=== PATIENT | male | born 1960 | race Caucasian/White ===

== ENCOUNTER 2023-12-03 18:37 | Emergency (ER) | payer MEDICARE, SELFPAY ==
--- NOTE | ~2023-12-03 | XR_ITS ---
EXAMINATION: XR LUMBOSACRAL SPINE CLINICAL INFORMATION: Low back pain COMPARISON: None available. TECHNIQUE: Three views of the lumbosacral spine. FINDINGS: There is anatomic alignment of the lumbar vertebral bodies and posterior elements. Vertebral body heights are maintained. No acute fracture identified. Multilevel endplate osteophytes are noted. There is disc space narrowing which appears most prominent at L2-L3. Sacroiliac joints appear intact. XR/XR lumbar spine 2-3V IMPRESSION: No acute findings identified. Degenerative changes as noted above.
[2023-12-03 19:03] VITALS: BP 127/76; PULSE 73; RESP 18; TEMP 36.8; O2SAT 99; BMI 21.4
--- NOTE | 2023-12-03 19:07 | ED_ITS ---
HPI - General Adult General Chief complaint: Extremity Injury, Lower Stated complaint: ? blood clot LT leg Time Seen by Provider: 12/04/23 02:54 Source: patient Mode of arrival: ambulatory Limitations: no limitations History of Present Illness HPI narrative: Patient complaining of left lower lumbar area pain for last 1 week patient was pulling the wires at work and after that pain started denies any urinary symptoms does have pain shooting sometimes to the left leg and left foot no paresthesia no bladder or bowel in normal ambulatory at this time patient feeling much better after arrival in the ER Related Data Previous Rx's Medication Instructions Recorded cyclobenzaprine 10 mg tablet 10 mg PO Q8H #20 tabs 12/04/23 Allergies Allergy/AdvReac Type Severity Reaction Status Date / Time No Known Allergies Allergy Verified 12/03/23 19:03 [No Known Allergies*] Review of Systems 2 Review of Systems: Yes all other systems are reviewed and are negative [facility] Social History Social History Smoked in Last 30 Days: Yes Use of substances other than those prescribed or required for medical reasons: No Advance Directives: No Advance Directives Information Provided: Yes Physical Exam ED Vital Signs: Vital Signs - 24 hr 12/03/23 19:03 12/04/23 01:48 12/04/23 03:41 Temperature 98.3 F 98.8 F 97.8 F Pulse Rate 73 73 56 Respiratory Rate 18 16 16 Blood Pressure 127/76 141/69 H 125/63 Pulse Oximetry 99 96 97 Oxygen Delivery Method Room Air Room Air Room Air BMI result Body Mass Index 21.4 Appearance: Alert. Oriented X3. No acute distress. ENT: Pharynx normal. Oral Mucosa moist Neck: Normal inspection. Neck supple. CVS: Normal heart rate and rhythm. Pulses normal. Respiratory: No respiratory distress. Equal air entry bilateral, no wheezing/rales/rhonchi Abdomen: Soft and nontender. Bowel sounds are present, no mass palpable, no CVA tenderness Skin: Skin warm and dry. Normal skin color. Normal skin turgor Back: Soft tissue tenderness left side of L3-4 vertebral no midline tenderness SLR negative patient able to stand on toes and heel gait is normal. Extremities: No lower extremity edema. No calf tenderness Neuro: Oriented X 3. No motor deficit. No sensory deficit.No cerebellar signs , cranial nerves II-XII intact Course Course Course Narrative: RME performed by Josephine Shah PA-C. Patient is a 63 year old assigned male at presenting to the emergency department with low back pain and feeling generally unwell. Confirmed pulse in the left foot. Detailed physical exam and review of systems are deferred to the nurse outreach case manager. Labs ordered. Patient placed back in the waiting room pending room availability and results. Medications Administered Discontinued Medications Generic Name Dose Route Start Last Admin Trade Name Suzanne PRN Reason Stop Dose Admin Cyclobenzaprine HCl 10 mg 12/04/23 03:21 12/04/23 04:02 Cyclobenzaprine Hcl 10 Mg Tablet PO 12/04/23 03:22 10 mg ONCE ONE Administration Medical Decision Making Medical Decision Making [facility] Narrative: Patient's x-ray negative for compression fracture likely patient has left lumbar strain ambulatory in the steady gait patient does have oxycodone at home will discharge patient home on Flexeril Differential Diagnosis Differential Diagnoses: The differential diagnosis associated with the presentation includes Lumbar strain/compression fracture Lab Data [facility] Lab Attestation statement: I reviewed the patient's lab results. 12/03/23 19:14 12/03/23 19:14 Labs: Lab Results 12/03/23 Range/Units 19:14 WBC 9.3 (4.8-10.8) X10*3/uL RBC 5.07 (4.60-5.80) X10*6/uL Hgb 16.0 (14.0-18.0) g/dl Hct 47.5 (42.0-52.0) % MCV 93.7 (80.0-98.0) fL MCH 31.6 (27.0-33.0) pg MCHC 33.7 (31.0-36.0) g/dl RDW 13.0 (11.0-16.0) % Plt Count 211 (160-400) X10*3/uL MPV 9.0 L (9.4-12.4) fL Immature Gran % (Auto) 0.3 (0.0-0.4) % Neut % (Auto) 62.6 (45-73) % Lymph % (Auto) 28.8 (20-40) % Redwood % (Auto) 6.0 (2-11) % Eos % (Auto) 1.7 (0-4) % Baso % (Auto) 0.6 (0-2) % Lymph # (Auto) 2.7 (1.2-4.9) X10*3/uL Redwood # (Auto) 0.6 (0.1-1.2) X10*3/uL Eos # (Auto) 0.2 (0.0-0.4) X10*3/uL Baso # (Auto) 0.1 (0.0-0.2) X10*3/uL Abs Immat Gran (auto) 0.03 (0.00-0.03) X10*3/uL Absolute Neuts (auto) 5.8 (2.0-8.3) x10*3/uL Absolute Nucleated RBC 0.000 (0.0-0.012) X10*3/uL Nucleated RBC % (auto) 0.0 (0.0-0.2) /100WBC Sodium 142 (135-145) mmol/L Potassium 4.5 (3.3-5.1) mmol/L Chloride 103 (96-108) mmol/L Carbon Dioxide 29 (22-29) mmol/L Anion Gap 15 (12-20) BUN 15 (9-16) mg/dL Creatinine 1.04 (0.5-1.4) mg/dL Estim Creat Clear Calc 66.7 Estimated GFR > 60 Random Glucose 115 (60-115) mg/dL Calcium 9.0 (8.4-10.2) mg/dL Magnesium 2.0 (1.6-2.6) mg/dL Total Bilirubin 0.4 (0.0-1.0) mg/dL AST 13 (5-37) U/L ALT 11 (0-40) U/L Alkaline Phosphatase 58 (39-117) U/L Total Protein 6.8 (6.5-8.0) g/dL Albumin 4.0 (3.5-5.0) g/dL Independent Interpretation I performed an independent interpretation of an: Plain X-Ray Radiology Impression Discussion of test interpretation with radiology: I have reviewed the radiologist's reading. Discharge Plan Discharge Clinical Impression: Acute lumbar myofascial strain Patient Disposition: Home, Self-Care Instructions: Low Back Strain (ED) Additional Instructions: Rest to your back Avoid lifting heavy stuff Continue pain medication Muscle relaxants as advised Follow with PCP if not better Prescriptions: New cyclobenzaprine 10 mg tablet 10 mg PO Q8H Qty: 20 0RF Interventions: ED Discharge Assessment Last Done: 12/04/23 05:00 Discharge Date/Time: 12/04/23 05:00
--- NOTE | 2023-12-03 19:15 | MHC.EDTECH ---
Patient brought into triage area,labs obtained and sent to lab, Patient brought to waiting room
[2023-12-03 19:20] LABS: MANUAL DIFF FLAG NO
[2023-12-03 19:23] LABS: Basophils Absolute Auto 0.1 X10*3/uL (0.0-0.2); Basophils Percent Auto 0.6 % (0-2); Eosinophils Absolute Auto 0.2 X10*3/uL (0.0-0.4); Eosinophils Percent Auto 1.7 % (0-4); Hematocrit 47.5 % (42.0-52.0); Imm Gran Abs Auto 0.03 X10*3/uL (0.00-0.03); Imm Gran Pct Auto 0.3 % (0.0-0.4); Lymphocytes Absolute Auto 2.7 X10*3/uL (1.2-4.9); Lymphocytes Percent Auto 28.8 % (20-40); Mean Corpuscular HGB Conc 33.7 g/dl (31.0-36.0); Mean Corpuscular Hemoglobin 31.6 pg (27.0-33.0); Mean Corpuscular Volume 93.7 fL (80.0-98.0); Monocytes Absolute Auto 0.6 X10*3/uL (0.1-1.2); Neutrophils Absolute Auto 5.8 x10*3/uL (2.0-8.3); Neutrophils Percent Auto 62.6 % (45-73); Platelet Count 211 X10*3/uL (160-400); Red Blood Count 5.07 X10*6/uL (4.60-5.80); White Blood Count 9.3 X10*3/uL (4.8-10.8)
[2023-12-03 19:37] LABS: Alanine Aminotransferase 11 U/L (0-40); Alkaline Phosphatase 58 U/L (39-117); Anion Gap 15 (12-20); Aspartate Amino Transferase 13 U/L (5-37); Bilirubin Total 0.4 mg/dL (0.0-1.0); Blood Urea Nitrogen 15 mg/dL (9-16); Carbon Dioxide 29 mmol/L (22-29); Chloride 103 mmol/L (96-108); Creatinine Clr Calc Pharmacy 66.7; Estimated Glomerular Filt Rate > 60; Glucose Random 115 mg/dL (60-115); Potassium 4.5 mmol/L (3.3-5.1); Sodium 142 mmol/L (135-145); Total Protein 6.8 g/dL (6.5-8.0)
[2023-12-04 01:48] VITALS: BP 141/69; PULSE 73; RESP 16; TEMP 37.1; O2SAT 96
[2023-12-04 03:41] VITALS: BP 125/63; PULSE 56; RESP 16; TEMP 36.6; O2SAT 97
[2023-12-04] MEDS: Cyclobenzaprine HCl 10 MG TABLET PO (04:02)
--- NOTE | 2023-12-04 04:58 | PC.NURSE ---
pt informed of negative xray. pt amble to stand and pivot into wheelchair. pt reports less pain at discharge. pt in car for ride home. pt provided with discharge packet. pt verbalized understanding of discharge plan
== END 2023-12-04 05:00 | disposition home or self-care (01) ==
PROVIDERS: Physician Assistant Medical; Emergency Provider Internal Medicine
DX: S39.012A Strain of muscle, fascia and tendon of lower back, initial encounter (principal); X58.XXXA Exposure to other specified factors, initial encounter; M79.605 Pain in left leg; Y93.89 Activity, other specified; Y92.013 Bedroom of single-family (private) house as the place of occurrence of the external cause; Y99.9 Unspecified external cause status
CPT/HCPCS: 36415; 72100; 80053; 83735; 85025; 99283; 99284

== ENCOUNTER 2025-10-09 13:13 | Emergency (ER) | payer MEDICARE, SELFPAY ==
[2025-10-09 13:32] VITALS: BP 130/66; PULSE 76; RESP 16; TEMP 37; O2SAT 100; BMI 21.9
--- NOTE | 2025-10-09 13:33 | ED.GENADULT ---
HPI - General Adult General Chief complaint: Eye Problems Stated complaint: eye issue Time Seen by Provider: 10/09/25 16:01 Source: patient Mode of arrival: ambulatory Limitations: no limitations History of Present Illness ED Provider: Dr. Moreau [facility] narrative: 65-year-old male presented hospital today for left eye irritation. Patient stated that he was grinding metal when he felt a sudden discomfort in his left eye. He was able to flush it on his own. Patient stated that he has this happened in the past before. He does wear safety goggles. He attempted to get this metal piece out by himself however unable to. Visual acuity intact Related Data Previous Rx's ?Medication ?Instructions ?Recorded cyclobenzaprine 10 mg tablet 10 mg PO Q8H #20 tabs 12/04/23 erythromycin 5 mg/gram (0.5 %) eye 0.5 inch ophthalmic (eye) BID #3.5 10/09/25 ointment grams Allergies Allergy/AdvReac Type Severity Reaction Status Date / Time No Known Allergies (No Known Allergy Verified 10/09/25 13:37 Allergies*) Review of Systems Review of Systems: Pertinent review of systems as mentioned in HPI. All other system otherwise negative. [facility] Past Medical History [facility] Narrative: Back pain Physical Exam ED Exam Exam: General: Pleasant, no distress, interacting appropriately Head: Normacephalic, atraumatic ENT: There is a small metal object in the cornea. No sign of foreign object underneath the left eyelid. Neurological: Awake and alert, no facial droop noted Skin: Warm and dry Psychiatric: Appropriate mood and thoughts Vital Signs: Vital Signs - 24 hr 10/09/25 13:32 Temperature 98.6 F Pulse Rate 76 Respiratory Rate 16 Blood Pressure 130/66 Pulse Oximetry 100 Oxygen Delivery Method Room Air BMI result Body Mass Index 21.9 Course Course Course Narrative: Rapid medical examination performed in triage by Josephine Shah PA-C: Patient is a 65 year old assigned male at presenting to the emergency department with left eye pain and irritation. Patient states that he was grinding metal 3 days ago and got something in his left eye that continues to bother him. Detailed physical exam and review of systems are deferred to the primary care nurse practitioner. Patient placed back in the waiting room pending room availability. Medications Administered Discontinued Medications Generic Name Dose Route Start Last Admin Trade Name Freq PRN Reason Stop Dose Admin Fluorescein Sodium 1 strip 10/09/25 16:15 10/09/25 16:19 Fluorescein Sodium Strip EYE-LEFT 10/09/25 16:16 1 strip ONCE ONE Administration Tetracaine HCl 1 drop 10/09/25 16:15 10/09/25 16:23 Tetracaine Hcl 0.5% Oph Lucrecia 5 Ml Drops EYE-LEFT 10/09/25 16:16 1 drop ONCE ONE Administration Procedures Procedure Narrative Procedure Narrative: Wood lamp, foreign object removal Left eye was numb with tetracaine, flourescin was placed in left eye. There is a small corneal ulcer surrounding the metal object. No scratches on ulcer identified. No jeniffer sign. I used a 20 gauge needle removed the metal object from the cornea without any issues. Medical Decision Making Medical Decision Making [facility] Narrative: 65-year-old male presented hospital today for left eye pain after metal foreign object embedded in the left cornea. I remove this foreign object with a 20 gauge needle. Patient tolerated procedure well. There is a small corneal ulceration identified on exam. We will plan to discharge patient on erythromycin ointment. Follow up with the Ophthalmology Clinic here will be given to patient. Patient agrees and understands with this plan all questions were addressed. Differential Diagnosis Differential Diagnoses: The differential diagnosis associated with the presentation includes Corneal ulcer, metal in left cornea Discharge Plan Discharge Clinical Impression: S/P removal of metal from eye Corneal injury Qualifiers: Encounter type: initial encounter Laterality: left Qualified Code(s): S05.8X2A - Other injuries of left eye and orbit, initial encounter Patient Disposition: Home, Self-Care Instructions: Corneal Abrasion (ED) Prescriptions: New erythromycin 5 mg/gram (0.5 %) ointment 0.5 inch ophthalmic (eye) BID Qty: 3.5 0RF No Action cyclobenzaprine 10 mg tablet 10 mg PO Q8H Qty: 20 0RF Referrals: Joe Sandhu [Physician, Ophthalmology] Print Language: Welsh
--- OUTSIDE RECORDS SUMMARY | 2025-10-09 15:45 | XMS_ITS | Encounter Summary ---
Author Organization [facility] Address [address] [place] [address] Phone Care Team Providers Care Fire Officer Name Role Phone Sanya Nazario MD Primary Care Provider [phone] Encounter Details Date Type Department Care Team (Late st Contact Info) Description 11/20/2017 Ancillary Orders [facility] [address] [place] [address] [address], [address] [place] [address] Jose Guadalupe Yancey MD [address] [place] [phone] Palpitation Social History Tobacco Use Types Packs/Day Years Used Date Smoking Tobacco: Never Assessed Sex and Gender Information Value Date Recorded Sex Assigned at Not on file Legal Sex Male 9:50 PM EDT Gender Identity Not on file Sexual Orientation Not on file documented as of this encounter Plan of Treatment Not on file documented as of this encounter Visit Diagnoses Diagnosis Palpitation Palpitations documented in this encounter Care Teams Fire Officer Relationship Specialty Start Date End Date Sanya Nazario MD PCP - General Internal Medicine 11/20/17 documented as of this encounter Additional Source Comments The information contained in this document represents components of the legal health record. It is not the complete legal health record.[facility]
--- OUTSIDE RECORDS SUMMARY | 2025-10-09 15:45 | XMS_ITS | Encounter Summary ---
Author Organization [facility] Address [address] [place] [address] Phone Care Team Providers Care Zmt Operator Name Role Phone Pcp, Unknown Primary Care Provider Sanya Christensen MD Primary Care Provider [phone] Encounter Details Date Type Department Care Team (Late st Contact Info) Description 11/08/2017 Ancillary Orders [facility] [address] [place] [address] [address]rd Floor, [address] [place] [address] Jose Guadalupe Yancey MD [address] [place] [phone] Palpitation Social History Tobacco Use Types Packs/Day [...] Palpitations documented in this encounter Care Teams Zmt Operator Relationship Specialty Start Date End Date Pcp, Unknown PCP - General 11/08/17 11/19/17 Sanya Nazario MD PCP - General Internal Medicine 11/20/17 documented as of this encounter Additional Source Comments The information contained in this document represents components of the legal health record. It is not the complete legal health record.[facility]
--- OUTSIDE RECORDS SUMMARY | 2025-10-09 15:45 | XMS_ITS | Encounter Summary ---
Author Organization [facility] Address [address] [place] [address] [place] [phone] Phone Care Team Providers Care Division Controller Name Role Phone Sanya Nazario MD Primary Care Provider [phone] Reason for Referral * MRI/CAT Scan - Closed Specialty Diagnoses / Procedures Referred By Alexandrea montana Referred To Contact Diagnoses Palpitation Procedures NC Myocardial Perfusion Exercise Multiple Jose Guadalupe Yancey MD Phone: tel: [email or web address] Referral ID Status Reason Start Date Expiration Date Visits Re quested Visits Authorized [id number] Closed 12/18/2017 02/15/2018 1 1 Encounter Details Date Type Department Care Team (Late st Contact Info) Description 12/18/2017 Ancillary Orders [facility] [address] 3rd Floor, [address] [place] [address] Jose Guadalupe Yancey MD [address] [place] [phone] Palpitation Social History Tobacco Use Types Packs/Day Years Used Date Smoking Tobacco: Never Assessed Sex and Gender Information Value Date Recorded Sex Assigned at Not on file Legal Sex Male 9:50 PM EDT Gender Identity Not on file Sexual Orientation Not on file documented as of this encounter Plan of Treatment Not on file documented as of this encounter Results * NC Myocardial Perfusion Exercise Multiple (12/21/2017 9:14 AM EST) Anatomical Region Laterality Modality Heart, Vascular Ultrasound Narrative 12/24/2017 4:35 PM EST Abnormal study Medium sized severe fixed defect involving the inferior wall. This is consistent with a transmural inferior scar. There is no evidence of significant ischemia. Mild LV dysfunction with inferior hypokinesis. Study Quality Overall image quality is good. There are no artifacts present. NC Study Impression Left ventricular perfusion is abnormal. There is no prior study for comparison. Abnormal study Medium sized severe fixed defect involving the inferior wall. This is consistent with a transmural inferior scar. There is no evidence of significant ischemia. Mild LV dysfunction with inferior hypokinesis. Stress Test Result Exercise Stress Test Report: Reason for termination: Fatigue Summary: Resting ECG: SB HR 56 with incomplete IVCD and NSSTW Functional capacity: Average Heart rate response to exercise: Appropriate Blood pressure response to exercise: Normal resting-appropriate response Chest pain: None Arrhythmias: Occasional PVC's ST-T changes: See below Overall impression: Equivocal exercise stress test Conclusion: Jimi Painting exercised for 8:58 Minutes on a standard Solomon protocol achieving 87% MPHR (142 BPM) and 10.10 METS. Test terminated due to fatigue Summary: 1. EK.5mm slow upsloping in lateral leads at peak exercise that resolves in late recovery 2. Symptoms: No exertional chest pain or symptoms concerning for angina 3. Exercise physiology: Normal heart rate and BP response to exercise. Max HR 142 With normal HR recovery. Max BP 200/64 From baseline BP of 114/64. 02 sat 95-96% and stable throughout the procedure. Average functional capacity for age noted 4. Arrhythmia:Occasional PVC's Conclusion: Equivocal exercise stress test. 0.5mm slow upsloping in lateral leads at peak exercise that resolves in late recovery. No esertional chest pain or symptoms concerning for angina. Vital signs at baseline at time of discharge from the lab. Nuclear images to follow. EKG reviewed with Dr. Brito. Lucy Angel NP Nuclear Cardiology Measurements End systolic (mL): 60 End diastolic (mL): 117 Stress EF=48% Rest EF=42% Ejection Fraction: Mild (40-49%)Patient was injected Lt AC IV during stress with 12.2mCi Tc99m Sestamibi and with 11.9mCi Tc99m Sestamibi Lt AC at rest. Perfusion Scoring Resting Summed Score: 6 Percent Normal: 8.82% Moderate count reduction in the following segments: mid inferior and apical septal. Mild count reduction in the following segments: mid inferoseptal and apical inferior. All other segments are normal. Perfusion Scoring Stress Summed Score: 7 Percent Normal: 10.29% Moderate count reduction in the following segments: mid inferior and apical septal. Mild count reduction in the following segments: basal anteroseptal, mid inferoseptal and apical inferior. All other segments are normal. us Jose Guadalupe Yancey MD CV NM CARDIAC Final Result documented in this encounter Visit Diagnoses Diagnosis Palpitation Palpitations Palpitation Palpitations documented in this encounter Care Teams Division Controller Relationship Specialty Start Date End Date Sanya Nazario MD PCP - General Internal Medicine 11/20/17 documented as of this encounter Additional Source Comments The information contained in this document represents components of the legal health record. It is not the complete legal health record.[facility]
--- OUTSIDE RECORDS SUMMARY | 2025-10-09 15:45 | XMS_ITS | Clinical Summary ---
Author Organization [facility] Address [address] [place] [address] Phone Care Team Providers Care Fern Cutter Name Role Phone Sanya Nazario MD Primary Care Provider [phone] Social History Tobacco Use Types Packs/Day Years Used Date Smoking Tobacco: Never Assessed Sex and Gender Information Value Date Recorded Sex Assigned at Not on file Legal Sex Male 9:50 PM EDT Gender Identity Not on file Sexual Orientation Not on file Last Filed Vital Signs Vital Sign Reading Time Taken Comments Blood Pressure 120/70 11/20/2017 9:06 AM EST Rec overy, 5 min Pulse - - Temperature - - Respiratory Rate - - Oxygen Saturation 95% 11/20/2017 8:56 AM EST Inhaled Oxygen Concentration - - Weight - - Height - - Body Mass Index - - Plan of Treatment Not on file Medical Devices Not on file Insurance [place] [address] [place] [address] PPO EPO PPO EPO PPO EPO PPO EPO Care Teams Fern Cutter Relationship Specialty Start Date End Date Sanya Nazario MD PCP - General Internal Medicine 11/20/17 Additional Source Comments The information contained in this document represents components of the legal health record. It is not the complete legal health record.[facility]
[2025-10-09] MEDS: Fluorescein Sodium STRIP 1 STRIP EYE-LEFT (16:19)
[2025-10-09] MEDS: Tetracaine HCl 0.5% Oph Sol 5 ML DROPS 1 DROP EYE-LEFT (16:23)
[2025-10-09 16:54] VITALS: BP 126/76; PULSE 64; RESP 18; TEMP 36.9; O2SAT 98
== END 2025-10-09 16:55 | disposition home or self-care (01) ==
PROVIDERS: Emergency Provider Student in an Organized Health Care Education/Training Program
DX: S05.8X2A Other injuries of left eye and orbit, initial encounter (principal); T15.82XA Foreign body in other and multiple parts of external eye, left eye, initial encounter; W44.8XXA Other foreign body entering into or through a natural orifice, initial encounter; Y93.9 Activity, unspecified; Y92.9 Unspecified place or not applicable; Y99.9 Unspecified external cause status
CPT/HCPCS: 99283; 99284